=== PATIENT | female | born 1955 | race American Indian/Alaskan Native ===

== ENCOUNTER 2016-12-10 09:59 | Emergency (ER) | payer OTHER ==
[2016-12-10 10:10] VITALS: BP 155/86; PULSE 88; TEMP 97.6; BMI 34.3
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
[2016-12-10] MEDS ORDERED: ACETAMINOPHEN 325 MG TABLET (FP) PO ONE (10:34)
[2016-12-10] MEDS ORDERED: ACETAMINOPHEN 325 MG TABLET (FP) ONE (10:39)
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
== END 2016-12-10 12:55 | disposition home or self-care (01) ==
LOC: JER 09:59
DX: S59.811A Other specified injuries right forearm, initial encounter (principal); S09.8XXA Other specified injuries of head, initial encounter; V47.5XXA Car driver injured in collision with fixed or stationary object in traffic accident, initial encounter; Y92.414 Local residential or business street as the place of occurrence of the external cause; Y93.89 Activity, other specified; E78.5 Hyperlipidemia, unspecified; I25.10 Atherosclerotic heart disease of native coronary artery without angina pectoris; I10 Essential (primary) hypertension; Z95.5 Presence of coronary angioplasty implant and graft
CPT/HCPCS: 70450-TC; 72100-TC; 72125-TC; 73090-TC-RT; 73502-TC-LT; 99282-25

== ENCOUNTER 2018-03-31 23:57 | Inpatient (IN) | payer OTHER ==
--- NOTE | 2018-04-01 00:43 | PDOC ---
History of Present Illness - General Chief Complaint: Pain, Acute Stated Complaint: abd pain Time Seen by Provider: 04/01/18 00:39 History Source: Patient - History of Present Illness Initial Comments: 04/01/18 01:29 The patient is a 62 year old female with a PMH of CAD (s/p stent x2), HTN, HLD, Hypothyroidism who presents to our ED c/o acute onset of abdominal pain. Patient states the pain started shortly after her dinner at 8:30 p.m. last night. Pain is diffuse, sharp, "gassy" 10/10 with no radiation. Little relief w/OTC Mylanta. Small bowel movement s/p enema. Patient denies chest pain, shortness of breath, cough, sore throat, numbness/ tingling. NKDA Surgical: C/S, hysterectomy,primary jejunal anastomosis Social: denies toxic habits PMD: Dr. Beck As per EMR, patient evaluated in 2014 for abdominal pain at which time CT showed dilitation of jejunal loop, possibly 2/2 to adhesions, resolved with gastric decompression. Past History - Past Medical History Allergies/Adverse Reactions: Allergies Allergy/AdvReac Type Severity Reaction Status Date / Time No Known Allergies Allergy Verified 04/01/18 00:46 Home Medications: Ambulatory Orders Clopidogrel Bisulfate [Plavix -] 75 mg PO DAILY 08/03/15 Ranitidine HCl [Zantac] 150 mg PO BID 08/03/15 Ranolazine [Ranexa] 500 mg PO BID 08/03/15 Amlodipine Besylate [Norvasc -] 10 mg PO DAILY tablet 05/11/16 Aspirin [ASA -] 81 mg PO DAILY tab.chew 05/11/16 Atorvastatin Ca [Lipitor] 40 mg PO HS tablet 05/11/16 Ezetimibe [Zetia -] 10 mg PO DAILY tablet 05/11/16 Levothyroxine [Synthroid -] 50 mcg PO DAILY #0 05/11/16 Metoprolol Tartrate [Lopressor -] 25 mg PO BID tablet 05/11/16 Multivitamins [Multivit ([facility] Formul[facility])] 1 tab PO DAILY tab 05/11/16 Acetaminophen [Tylenol Extra Strength] 500 mg PO TID #9 tablet 12/10/16 Anemia: No Cardiac Disorders: Yes (CAD) GI Disorders: Yes (SMALL BOWEL OBSTRUCTION) HTN: Yes Hypercholesterolemia: Yes - Surgical History Abdominal Surgery: Yes (BOWEL RESECTION) Cardiac Surgery: Yes (CARDIAC stent placement September 2013) - Family Disease History Family Disease History: Heart Disease: Brother ( of massive [place] at 45 years old) - Immunization History Immunization Up to Date: Yes - Suicide/Smoking/Psychosocial Hx Smoking Status: No Smoking History: Never smoked Have you smoked in the past 12 months: No Number of Cigarettes Smoked Daily: 0 Hx Alcohol Use: No Drug/Substance Use Hx: No Substance Use Type: None Hx Substance Use Treatment: No Review of Systems - Review of Systems Constitutional: No: Chills, Fever HEENTM: No: Blurred Vision, Double Vision Respiratory: No: Cough, Shortness of Breath Cardiac (ROS): No: Chest Pain, Lightheadedness, Palpitations, Syncope ABD/GI: Yes: Constipated, Nausea, Abdominal cramping. No: Diarrhea, Vomiting *Physical Exam - Physical Exam General Appearance: Yes: Nourished, Obese HEENT: positive: Normal Voice, Hearing Grossly Normal Neck: positive: Trachea midline, Supple Respiratory/Chest: positive: Lungs Clear, Normal Breath Sounds. negative: Labored Respiration, Rapid RR Cardiovascular: positive: S1, S2. 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 H/o SBO. Tenderness w/o peritoneal signs in epigastric area. Frontal Dx: constipation, cholecystitis, SBO, early appy, mesenteric ischemia, gastritis, PUD, pancreatitis. Will obtain belly labs. IV hydration + Morphine. Reassess. 04/01/18 02:50 No leukocytosis CMP unremarkable Lipase normal 04/01/18 02:54 UA shows 1+ leukocyte esterase, 3 WBC, rare epithelial cells No previous Urine cultures in EMR 04/01/18 02:[address] 04/01/18 04:14 Repeat belly exam shows minimal TTP on stethescope test Small bowel dilitation, no SBO, no acute appy, normal GB, pancreas, spleen Lactic Acid pending 04/01/18 05:29 Lactic Acid normal Patient continues to c/o pain. Will give GI cocktail and admit for intractable pain. S/p greenish liquid emesis 04/01/18 05:41 Case d/w Dr. Wilkins, will admit for observation. Patient counseled on plan of care, amenable to admission. *DC/Admit/Observation/Transfer Diagnosis at time of Disposition: Abdominal pain - Discharge Dispostion Condition at time of disposition: Fair Decision to Admit order: Yes - Referrals Referrals: Sandy Beck MD [Primary Care Provider] - - Patient Instructions - Post Discharge Activity
[2018-04-01] MEDS ORDERED: SODIUM CHLORIDE 0.9% 500 ML INFUS.BAG IV ONE (01:19)
[2018-04-01] MEDS ORDERED: morphine CARPU-JECT 4 MG/1 ML DISP.SYRIN IVPUSH ONE (01:19)
[2018-04-01] MEDS ORDERED: morphine SULFATE 4 MG/ML VIAL ONE ×2 (02:15→06:47)
[2018-04-01 02:34] LABS: BASO % 0.7 % (0-2.0); EOS % 1.7 % (0-4.5); HEMOGLOBIN 15.3 GM/dL (10.7-15.3); LYMPH % 35.4 % (8-40); MCH 30.2 pg (25.7-33.7); MCHC 33.3 g/dl (32.0-36.0); MEAN CELL VOLUME 90.7 fl (80-96); MEAN PLT VOLUME 9.2 fl (7.5-11.1); NEUT % 56.2 % (42.8-82.8); PLATELET COUNT 161 K/MM3 (134-434); RBC 5.07 M/mm3 (3.60-5.2); RDW 13.4 % (11.6-15.6)
[2018-04-01 02:34] LABS: URINE APPEARANCE CLEAR; URINE BILIRUBIN NEGATIVE (<2.0 mg/dL); URINE COLOR YELLOW; URINE GLUCOSE (UA) NEGATIVE (NEGATIVE); URINE KETONE NEGATIVE (NEGATIVE); URINE LEUK ESTERASE 1+ (NEGATIVE); URINE NITRITE NEGATIVE (NEGATIVE); URINE PROTEIN NEGATIVE (NEGATIVE); URINE UROBILINOGEN NEGATIVE mg/dL (0.2-1.0)
[2018-04-01 02:42] LABS: EPI CELLS RARE /HPF (FEW); GRANULAR CASTS 3 /lpf; URINE HYALINE CAST 1 /lpf; URINE MUCUS FEW
--- NOTE | 2018-04-01 02:48 | PDOC ---
Attending Attestation - [facility] HPI: 04/01/18 02:50 The patient is a 62 year old female, with a significant past medical history of SBO, CAD (s/p stent x2), HTN, HLD, Hypothyroidism, who presents to the emergency department with, 5 hours of abdominal pain. Patient endorses that she has not been able to pass gas at this time with associated nausea. She tried mylanta and an enema, without relief, prompting her visit to the ER. She denies recent fevers, chills, headache or dizziness. She denies recent dysuria, frequency, urgency or hematuria. She denies recent chest pain or shortness of breath. Allergies: NKA Past surgical history:C/S, hysterectomy,primary jejunal anastomosis Social history: Nonsmoker. Denies EtOH use and recreational drug use. Primary Care Physician: Dr. Beck - Physicial Exam PE: 04/01/18 02:50 +GENERAL: Uncomfortably appearing. HEAD: Normal with no signs of trauma. +ABDOMEN: Diffuse upper quadrant tenderness. EXTREMITIES: Normal range of motion, no edema. No clubbing or cyanosis. No erythema, or tenderness. NEUROLOGICAL: Cranial nerves II through XII grossly intact. Normal speech. No focal neurological deficits. MUSCULOSKELETAL: Back non-tender to palpation, no CVA tenderness SKIN: Warm, Dry, normal turgor, no rashes or lesions noted. - Medical Decision Making 04/01/18 04:11 EXAM: CT abdomen and pelvis with IV contrast. Clinical indication: Epigastric pain. Comparison is made to the prior study dated 09/17/2014. Technique: Axial IV contrast-enhanced CT images of the abdomen and pelvis were obtained followed by coronal and sagittal reformats. Findings: The visualized portions of the lower thorax are within normal limits. There is no free intra-abdominal gas or fluid. The liver, gallbladder, adrenals, pancreas, and spleen are normal. There is no hydronephrosis or renal calculi bilaterally. The bilateral kidneys are normal. There are no enlarged abdominal or pelvic lymph nodes, by size criteria. However , there are a few prominent lymph nodes within the small bowel mesentery. There is been a prior hysterectomy. The urinary bladder is within normal limits. The appendix is normal. 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 However, there is no soft tissue mucosal thickening that is classically seen with small bowel lymphoma. There is some fecalized material within the small bowel. This can be seen on axial images 67 through 119. The remainder of the bowel is unremarkable. The visualized bony structures are unremarkable for the patient's age. Impression: 1. 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 Although small bowel lymphoma is the most common cause of aneurysmal dilatation of the small bowel there is no soft tissue mucosal thickening. Other etiology must also be considered in the differential including distal stricture, and other inflammatory conditions such as clothing sensitive enteropathy. 2. Few prominent small bowel mesenteric lymph nodes near the area of aneurysmal dilatation. 3. Otherwise, unremarkable CT of the abdomen and pelvis. One or more of the following dose reduction techniques were used: automated exposure control, adjustment of the mA and/or kV according to patient size, use of iterative reconstructive technique. Read by: Montana Wilson MD <Sj Cespedes - Last Filed: 04/01/18 05:37> - Resident Resident Name: Arlene Azul - ED Attending Attestation I have performed the following: I have examined & evaluated the patient, The case was reviewed & discussed with the resident, I agree w/resident's findings & plan, Exceptions are as noted - Medical Decision Making 04/01/18 05:59 Twelve-lead EKG was performed and reviewed by me. There is normal sinus rhythm with a normal rate of 76bpm. The axis is normal. The intervals are normal. There are no ST or T wave abnormalities. Impression: Normal twelve-lead EKG 62 yo F presenting to the ER with a complaint of abdominal pain H/o SBO Feels like her abdomen is distended, like she wants to pass gas but can not She tried doing an enema today with very little effect No fevers or chills On exam: Pt intermittently writhing in pain RRR CTA A&O x 3 upper abdominal tenderness to palpation, no guarding or rebound Labs wnl including lactate CT demonstrates no SBO, or intra abdominal infection Pt continues to complain of abd pain Was given morphine, Protonix Will place on observation <Adele Smith - Last Filed: 04/01/18 06:12> Attestations - Attestations 04/01/18 02:50 Documentation prepared by Sj Cespedes, acting as medical chief technician for Adele Smith MD. <Sj Cespedes - Last Filed: 04/01/18 05:37>
[2018-04-01 03:01] LABS: ALBUMIN 4.3 g/dl (3.4-5.0); ALK PHOS 138 U/L (45-117); ANION GAP 8 MMOL/L (8-16); BLOOD UREA NITROGEN 12 mg/dL (7-18); CALCIUM 9.1 mg/dL (8.5-10.1); CHLORIDE 103 mmol/L (98-107); CO2 27 mmol/L (21-32); CREATININE 0.9 mg/dL (0.55-1.3); GLUCOSE,RANDOM 136 mg/dL (74-106); LIPASE 167 U/L (73-393); POTASSIUM 3.9 mmol/L (3.5-5.1); SGOT/AST 56 U/L (15-37); SGPT/ALT 87 U/L (13-61); SODIUM 138 mmol/L (136-145); TOT PROT 8.6 g/dl (6.4-8.2)
[2018-04-01] MEDS ORDERED: PANTOPRAZOLE SODIUM 40 MG VIAL IVPUSH ONE (04:56)
[2018-04-01] MEDS ORDERED: PANTOPRAZOLE SODIUM 40 MG/100 ML BAG IVPB ONE (05:04)
[2018-04-01] MEDS ORDERED: LIDOCAINE VISCOUS 2% ORAL/TOP 20 ML UNIT-DOSE CUP MM ONE (05:21)
[2018-04-01] MEDS ORDERED: MAG HYDROX/AL HYDROX/SIMETH 30 ML UNIT-DOSE CUP PO ONE (05:21)
[2018-04-01] MEDS ORDERED: FAMOTIDINE 20 MG/50 ML IVPB 20 MG/50 ML MG IVPB ONE ×2 (05:21→06:48)
--- NOTE | 2018-04-01 06:19 | HP ---
CHIEF COMPLAINT: abdominal pain PCP: Dr. Beck HISTORY OF PRESENT ILLNESS: Patient is a 62 y/o female with a history of CAD x2, HTN, HLD, and hypothyroidism who presents for abdominal pain. Patient states the pain began yesterday. She notes the only abnormal thing she ate was a raw plaintain. She is occasionally constipated and thought the pain was from that so she gave herself an enema. She did have a small bowel movement but denies that the pain got better so she came to the hospital. She reports the pain is sharp, a 10/10, and is radiating to her back. She reports nothing makes it better. She felt nauseous but did not have her first episode of vomiting until one hour ago. She reports the pain is similar to when she had a SBO in 2013. She reports this SBO resolved on its own, did not need surgery, and she did not feel a need to follow up with GI. 40 years ago she had necrosis of her jujunum and had surgery. Patient reports she has never had a colonoscopy and has no family history of any colon diseases or colon cancer. Patient currently denies headache, chest pain, shortness of breath, or numbness or tingling. ER course was notable for: (1) NS (2) famotidine (3) morphine Recent Travel: denies PAST MEDICAL HISTORY:CAD x2 ( 2013), HTN, HLD, and hypothyroidism, TIA ( 2012) PAST SURGICAL HISTORY: Hysterectomy, C/S, primary jejunal anastamosis Social History: Smoking: denies Alcohol: denies Drugs: denies Family History: Father: HTN, parkinsons, Mother: stroke, DM, HTN Allergies No Known Allergies Allergy (Verified 04/01/18 00:46) HOME MEDICATIONS: Home Medications Medication Instructions Recorded Clopidogrel Bisulfate [Plavix -] 75 mg PO DAILY 08/03/15 Ranitidine HCl [Zantac] 150 mg PO BID 08/03/15 Ranolazine [Ranexa] 500 mg PO BID 08/03/15 Amlodipine Besylate [Norvasc -] 10 mg PO DAILY tablet 05/11/16 Aspirin [ASA -] 81 mg PO DAILY tab.chew 05/11/16 Atorvastatin Ca [Lipitor] 40 mg PO HS tablet 05/11/16 Ezetimibe [Zetia -] 10 mg PO DAILY tablet 12/24/16 Levothyroxine [Synthroid -] 50 mcg PO DAILY #0 05/11/16 Metoprolol Tartrate [Lopressor -] 25 mg PO BID tablet 05/11/16 Multivitamins [Multivit ([facility] 1 tab PO DAILY tab 05/11/16 Formulary)] Acetaminophen [Tylenol Extra 500 mg PO TID #9 tablet 12/10/16 Strength] REVIEW OF SYSTEMS CONSTITUTIONAL: Absent: fever, chills, diaphoresis, generalized weakness, malaise, loss of appetite, weight change HEENT: Absent: rhinorrhea, nasal congestion, throat pain, throat swelling, difficulty swallowing, mouth swelling, ear pain, eye pain, visual changes CARDIOVASCULAR: Absent: chest pain, syncope, palpitations, irregular heart rate, lightheadedness , peripheral edema RESPIRATORY: Absent: cough, shortness of breath, dyspnea with exertion, orthopnea, wheezing, stridor, hemoptysis GASTROINTESTINAL: abdominal pain, vomiting, Absent: abdominal distension, nausea, diarrhea, constipation, melena, hematochezia GENITOURINARY: Absent: dysuria, frequency, urgency, hesitancy, hematuria, flank pain, genital pain MUSCULOSKELETAL: Absent: myalgia, arthralgia, joint swelling, back pain, neck pain SKIN: Absent: rash, itching, pallor HEMATOLOGIC/IMMUNOLOGIC: Absent: easy bleeding, easy bruising, lymphadenopathy, frequent infections ENDOCRINE: Absent: unexplained weight gain, unexplained weight loss, heat intolerance, cold intolerance NEUROLOGIC: Absent: headache, focal weakness or paresthesias, dizziness, unsteady gait, seizure, mental status changes, bladder or bowel incontinence PSYCHIATRIC: Absent: anxiety, depression, suicidal or homicidal ideation, hallucinations. PHYSICAL EXAMINATION Vital Signs - 24 hr 04/01/18 00:00 Temperature 97.7 F Pulse Rate 94 H Respiratory 18 Rate Blood Pressure 152/70 O2 Sat by Pulse 99 Oximetry (%) GENERAL: Awake, alert, and fully oriented, in no distress HEAD: Normal with no signs of trauma. EYES: Pupils equal, round and reactive to light, extraocular movements intact EARS, NOSE, THROAT: Moist mucous membranes. LUNGS: Breath sounds equal, clear to auscultation bilaterally. No wheezes, and no crackles. No accessory muscle use. HEART: Regular rate and rhythm, normal S1 and S2 without murmur, rub or gallop. ABDOMEN: Soft, nontender, not distended, mildly tympanic, bowel sounds heard MUSCULOSKELETAL: Normal range of motion at all joints. LOWER EXTREMITIES: 2+ pulses, warm, well-perfused. No calf tenderness. No peripheral edema. NEUROLOGICAL: Normal speech. PSYCHIATRIC: Cooperative. Good eye contact. Appropriate mood and affect. SKIN: Warm, dry, normal turgor, no rashes or lesions noted, normal capillary refill. Laboratory Results - last 24 hr CBC, BMP 04/01/18 02:25 04/01/18 02:25 Urine Test Results Urine Color Yellow 04/01/18 01:51 Urine Appearance Clear 04/01/18 01:51 Urine pH 6.0 (5.0-8.0) 04/01/18 01:51 Ur Specific [place] 1.016 (1.010-1.035) 04/01/18 01:51 Urine Protein Negative (NEGATIVE) 04/01/18 01:51 Urine Glucose (UA) Negative (NEGATIVE) 04/01/18 01:51 Urine Ketones Negative (NEGATIVE) 04/01/18 01:51 Urine Blood Negative (NEGATIVE) 04/01/18 01:51 Urine Nitrite Negative (NEGATIVE) 04/01/18 01:51 Urine Bilirubin Negative (<2.0 mg/dL) 04/01/18 01:51 Ur Leukocyte Esterase 1+ (NEGATIVE) H 04/01/18 01:51 Ur Epithelial Cells Rare /HPF (FEW) 04/01/18 01:51 Urine Mucus Few 04/01/18 01:51 ASSESSMENT/PLAN: Patient is a 62 y/o female with a history of CAD x2, HTN, HLD, and hypothyroidism who presents for abdominal pain. #abdominal 2/2 to likely ileus - CT abd: segment of aneurysmal dilitation, must consider small bowel lymphoma - f/u Dr. Molina for surgery recommendations - f/u Dr. Jonas for GI f/u - monitor examination for obstruction and flatus - NPO - LR @ 110 - f/u lactic acid, CK, MG, Phosp - hold patients home meds: plavix ect. - morphine 4mg q6h #Elevated transaminitis - 2/2 to unknown cause, r/o liver dz - AST: 56, ALT: 87 #CAD s/p x2 stents - no hx of UT, per pt: hx of clot - HOLD plavix for possible surgery; per surgeon unlikely at this time #HTN - if tachy can give metoprolol 10 mg prn #Hypothyroidism - hold po meds #HLD - hold po meds Visit type - Emergency Visit Emergency Visit: Yes ED Registration Date: 04/01/18 Care time: The patient presented to the Emergency Department on the above date and was hospitalized for further evaluation of their emergent condition. - New Patient This patient is new to me today: Yes Date on this admission: 04/01/18 - Critical Care Critical Care patient: No
[2018-04-01] MEDS ORDERED: morphine CARPU-JECT 2 MG/1 ML DISP.SYRIN IVPUSH PRN (06:31)
--- NOTE | 2018-04-01 06:44 | PN ---
Teaching Attending Note Name of Resident: Melanie Plata ATTENDING PHYSICIAN STATEMENT I saw and evaluated the patient. I reviewed the resident's note and discussed the case with the resident. I agree with the resident's findings and plan as documented. SUBJECTIVE: Patient seen and examined at bedside; please see resident note for further details. She is hemodynamically stable and afebrile. She presents for intractable abdominal pain and was found to have an ileus on CT; she had a prior SBO several years ago that was managed conservatively; 30+ years ago she was found to have a necrotic bowel and did have a resection. Never had a colonoscopy. She has no other complaints today. Pain is cyclical. She is chronically constipated and occasionally gives herself enemas; small BM after giving herself one last night. Last time she passed gas was when she got to the ER. Will admit to medicine with sgy and GI consultation. Denies CP, SOB, etc PMH significant for CAD (s/p PCIx2 2013), TIA, HTN, HLD, Obesity, Chronic constipation, prior SBO, psoriasis PSH significant for remote bowel resection with primary jejunal anastamosis FH asked and noncontributory Social history denies alcohol, tobacco, and drug abuse. OBJECTIVE: VS reviewed; labs and imaging reviewed NAD, AAO, resting in bed, intermittently uncomfortable RRR s1/2 no mgr Slightly distended with little to no tympany; tender to palpation on R>L sides. No organomegaly felt but limited exam due to discomfort. CN2-12 grossly intact; no FNDs Normal behavior, appropriate mood CT reveals an ileus; some concentric LN; final report pending. Some aneurysmal dilation involving the mid small bowel. Labs reviewed;AST/ALT/ALP 56/87/138; no white count ASSESSMENT AND PLAN: Mrs. Marte is a 62 y/o female presenting with abdominal pain found to have an ileus; given her h/o SBO and risks sgy will be consulted and we will await their input on management of the ileus and monitor for obstruction. As her stents are old she doesn't need DAPT when she is NPO and can resume later. 1) Ileus with small bowel dilation -Cause unclear; may be 2/2 adhesions from prior procedures but also, as stated by radiology, have to consider small bowel lymphoma. No documentation of seeing Gi in the pst. Does also have a history of chronic constipation for which she intermittently uses enemas. -Monitor for progression to obstruction with serial abd exams; monitor for flatus/bm -Pain control/nausea control (Morphine, Zofran) -Consulting surgery; defer management to them (NGT vs. enema/stool softener/ laxative). Given possibility of small bowel lymphoma with transaminitis, etc. will consult GI. -NPO; can hold PO meds and resume when clear to take PO. IVF with LR@110 2) Transaminitis -Unclear cause; trend and monitor. No need for urgent MRCP but can consider based on GI input. LFTs wnl on the last admit 3) CAD s/p x2 PCI 2013 -No active chest pain; OK to hold DAPT until cleared to take PO as >1yr since stenting. -Resume home meds prior to DC; call pharmacy and ensure list up to date. -If tachy 2/2 BB WD can give IV metoprolol in interem 4) HTN -Nonacute; hold PO meds 5) HLD -Nonacute; hold PO meds 6) Hypothyroidism -Resume home meds when taking PO check TSH as OP 7) Obesity -[place] when clinically appropriate Full Code
[2018-04-01] MEDS ORDERED: LIDOCAINE VISCOUS 2% ORAL/TOP 20 ML UNIT-DOSE CUP ONE (06:47)
[2018-04-01] MEDS ORDERED: MAG HYDROX/AL HYDROX/SIMETH 30 ML UNIT-DOSE CUP ONE (06:48)
[2018-04-01] MEDS: LACTATED RINGERS SOLUTION 1,000 ML IV SCH (06:51)
[2018-04-01] MEDS ORDERED: METOPROLOL TARTRATE 5 MG/5 ML VIAL IVPUSH PRN (07:04)
[2018-04-01 08:15] LABS: BASO % 0.4 % (0-2.0); EOS % 0.5 % (0-4.5); HEMATOCRIT 43.9 % (32.4-45.2); HEMOGLOBIN 14.8 GM/dL (10.7-15.3); LYMPH % 10.7 % (8-40); MCH 30.5 pg (25.7-33.7); MCHC 33.6 g/dl (32.0-36.0); MEAN CELL VOLUME 90.6 fl (80-96); MONO % 5.9 % (3.8-10.2); NEUT % 82.5 % (42.8-82.8); PLATELET COUNT 143 K/MM3 (134-434); RBC 4.84 M/mm3 (3.60-5.2); RDW 13.4 % (11.6-15.6); WHITE BLOOD COUNT 8.5 K/mm3 (4.0-10.0)
[2018-04-01 08:47] LABS: ALBUMIN 3.8 g/dl (3.4-5.0); ALK PHOS 118 U/L (45-117); ANION GAP 9 MMOL/L (8-16); BILIRUBIN,TOTAL 1.3 mg/dL (0.2-1); BLOOD UREA NITROGEN 10 mg/dL (7-18); CALCIUM 8.4 mg/dL (8.5-10.1); CHLORIDE 104 mmol/L (98-107); CO2 26 mmol/L (21-32); CREATININE 0.7 mg/dL (0.55-1.3); GLUCOSE,RANDOM 188 mg/dL (74-106); PHOSPHOROUS 3.3 mg/dL (2.5-4.9); POTASSIUM 3.5 mmol/L (3.5-5.1); SGOT/AST 48 U/L (15-37); SGPT/ALT 74 U/L (13-61); SODIUM 139 mmol/L (136-145); TOT PROT 7.4 g/dl (6.4-8.2)
[2018-04-01 09:03] LABS: INR 1.15 (0.83-1.09); PROTHROMBIN TIME (PATIENT) 13.6 SEC (9.7-13.0)
[2018-04-01] MEDS ORDERED: NITROGLYCERIN SUBLINGUAL 1/150 0.4 MG TAB SL PRN (10:28)
--- NOTE | 2018-04-01 11:02 | PN ---
Physical Exam: SUBJECTIVE: Patient seen and examined. Pt. complains of bouts of retching. Pt. states abdominal pain began at 8pm last night most intense in epigastrium. Pt. throwing up bilious vomit. Pt. endorses having 2 very small BMs the second after a self administered enema. On chart review Pt.'s site of periumbilical psoriasis is david of old MRSA+ abcess in 2016. OBJECTIVE: Vital Signs Period Temp Pulse Resp BP Sys/Pricne Pulse Ox Last 24 Hr 97.7 F-97.8 F 82-94 18-24 108-152/66-70 93-99 GENERAL: The patient is awake, alert, and fully oriented, in acute distress from abdominal pain. HEAD: Normal with no signs of trauma. EYES: sclera anicteric, conjunctiva clear. No ptosis. ENT: Ears normal, nares patent, oropharynx clear without exudates, dry mucous membranes. LUNGS: Breath sounds equal, clear to auscultation bilaterally, no wheezes, no crackles, no accessory muscle use. HEART: Regular rate and rhythm, S1, S2 without murmur ABDOMEN: Soft, obese, surgical scars, diffuse tenderness to palpation most intense in epigastrium, nondistended, normoactive bowel sounds, no guarding, no rebound EXTREMITIES: 2+ dorsal pedal pulses, warm, well-perfused, no calf tenderness, no edema. NEUROLOGICAL: Normal speech, gait not observed. PSYCH: Normal mood, normal affect. SKIN: Warm, dry, normal turgor, psoriatic rash around umbilicus, ~2cm nodule left abdomen Laboratory Results - last 24 hr 04/01/18 04/01/18 04/01/18 01:51 02:25 02:25 WBC 6.0 RBC 5.07 Hgb 15.3 Hct 46.0 H MCV 90.7 MCH 30.2 MCHC 33.3 RDW 13.4 Plt Count 161 MPV 9.2 D Absolute Neuts (auto) 3.4 Neutrophils % 56.2 Lymphocytes % 35.4 Monocytes % 6.0 Eosinophils % 1.7 Basophils % 0.7 Nucleated RBC % 0 PT with INR INR Sodium 138 Potassium 3.9 Chloride 103 Carbon Dioxide 27 Anion Gap 8 BUN 12 Creatinine 0.9 Creat Clearance w eGFR > 60 Random Glucose 136 H Lactic Acid Calcium 9.1 Phosphorus Magnesium Total Bilirubin 1.0 AST 56 H ALT 87 H Alkaline Phosphatase 138 H Creatine Kinase 173 Creatine Kinase Index 1.0 CK-MB (CK-2) 1.9 Troponin I < 0.02 Total Protein 8.6 H Albumin 4.3 Lipase 167 Urine Color Yellow Urine Appearance Clear Urine pH 6.0 Ur Specific [place] 1.016 Urine Protein Negative Urine Glucose (UA) Negative Urine Ketones Negative Urine Blood Negative Urine Nitrite Negative Urine Bilirubin Negative Urine Urobilinogen Negative Ur Leukocyte Esterase 1+ H Urine WBC (Auto) 3 Urine RBC (Auto) 1 Ur Epithelial Cells Rare Hyaline Casts 1 Granular Casts 3 Urine Mucus Few Blood Type Antibody Screen 04/01/18 04/01/18 04/01/18 04:00 07:48 07:48 WBC 8.5 RBC 4.84 Hgb 14.8 Hct 43.9 MCV 90.6 MCH 30.5 MCHC 33.6 RDW 13.4 Plt Count 143 MPV 9.0 Absolute Neuts (auto) 7.0 Neutrophils % 82.5 D Lymphocytes % 10.7 D Monocytes % 5.9 Eosinophils % 0.5 Basophils % 0.4 Nucleated RBC % 0 PT with INR 13.60 H INR 1.15 H Sodium Potassium Chloride Carbon Dioxide Anion Gap BUN Creatinine Creat Clearance w eGFR Random Glucose Lactic Acid 1.5 Calcium Phosphorus Magnesium Total Bilirubin AST ALT Alkaline Phosphatase Creatine Kinase Creatine Kinase Index CK-MB (CK-2) Troponin I Total Protein Albumin Lipase Urine Color Urine Appearance Urine pH Ur Specific [place] Urine Protein Urine Glucose (UA) Urine Ketones Urine Blood Urine Nitrite Urine Bilirubin Urine Urobilinogen Ur Leukocyte Esterase Urine WBC (Auto) Urine RBC (Auto) Ur Epithelial Cells Hyaline Casts Granular Casts Urine Mucus Blood Type Antibody Screen 04/01/18 04/01/18 04/01/18 07:48 07:48 07:48 WBC RBC Hgb Hct MCV MCH MCHC RDW Plt Count MPV Absolute Neuts (auto) Neutrophils % Lymphocytes % Monocytes % Eosinophils % Basophils % Nucleated RBC % PT with INR INR Sodium 139 Potassium 3.5 Chloride 104 Carbon Dioxide 26 Anion Gap 9 BUN 10 Creatinine 0.7 Creat Clearance w eGFR > 60 Random Glucose 188 H Lactic Acid Calcium 8.4 L Phosphorus 3.3 Magnesium 2.0 Total Bilirubin 1.3 H AST 48 H ALT 74 H Alkaline Phosphatase 118 H Creatine Kinase 148 Creatine Kinase Index CK-MB (CK-2) Troponin I Total Protein 7.4 Albumin 3.8 Lipase Urine Color Urine Appearance Urine pH Ur Specific [place] Urine Protein Urine Glucose (UA) Urine Ketones Urine Blood Urine Nitrite Urine Bilirubin Urine Urobilinogen Ur Leukocyte Esterase Urine WBC (Auto) Urine RBC (Auto) Ur Epithelial Cells Hyaline Casts Granular Casts Urine Mucus Blood Type O POSITIVE Antibody Screen Negative 04/01/18 07:48 WBC RBC Hgb Hct MCV MCH MCHC RDW Plt Count MPV Absolute Neuts (auto) Neutrophils % Lymphocytes % Monocytes % Eosinophils % Basophils % Nucleated RBC % PT with INR INR Sodium Potassium Chloride Carbon Dioxide Anion Gap BUN Creatinine Creat Clearance w eGFR Random Glucose Lactic Acid 1.4 Calcium Phosphorus Magnesium Total Bilirubin AST ALT Alkaline Phosphatase Creatine Kinase Creatine Kinase Index CK-MB (CK-2) Troponin I Total Protein Albumin Lipase Urine Color Urine Appearance Urine pH Ur Specific [place] Urine Protein Urine Glucose (UA) Urine Ketones Urine Blood Urine Nitrite Urine Bilirubin Urine Urobilinogen Ur Leukocyte Esterase Urine WBC (Auto) Urine RBC (Auto) Ur Epithelial Cells Hyaline Casts Granular Casts Urine Mucus Blood Type Antibody Screen Active Medications Current Medications Lactated Ringer's (Lactated Ringers Solution) 1,000 mls @ 110 mls/hr IV ASDIR [facility] Last Admin: 04/01/18 06:51 Dose: 110 mls/hr Metoprolol Tartrate (Lopressor Injection -) 10 mg IVPUSH Q6H PRN PRN Reason: HYPERTENSION Morphine Sulfate (Morphine Sulfate) 4 mg IVPUSH Q6H PRN PRN Reason: PAIN LEVEL 7 - 10 Nitroglycerin (Nitrostat -) 0.4 mg SL PRN PRN PRN Reason: FOR CHEST PAIN Home Medications Medication Instructions Recorded Clopidogrel Bisulfate [Plavix -] 75 mg PO DAILY 08/03/15 Ranolazine [Ranexa] 1,000 mg PO BID 08/03/15 Amlodipine Besylate [Norvasc -] 10 mg PO DAILY tablet 05/11/16 Atorvastatin Ca [Lipitor] 40 mg PO HS tablet 05/11/16 Ezetimibe [Zetia -] 10 mg PO DAILY tablet 05/11/16 Multivitamins [Multivit ([facility] 1 tab PO DAILY tab 05/11/16 Formulary)] Clopidogrel Bisulfate [Plavix] 75 mg PO DAILY 04/01/18 Levothyroxine [Synthroid -] 75 mcg PO DAILY 04/01/18 Losartan Potassium 25 mg PO DAILY 04/01/18 Nitroglycerin 0.4 mg SL PRN PRN 04/01/18 ASSESSMENT/PLAN: Pt. is a 62 y.o. F w/ PMHx. of SBO, CAD x2 stents (2013), TIA, HTN, HLD, and hypothyroidism who presents for abdominal pain. #Gastroenterology -Abdominal Pain 2/2 suspected Ileus 2/[address] abd: segment of aneurysmal dilitation, must consider small bowel lymphoma Dr. Holder for surgery recommends: NGT for decompression, Rpt. CT w/ contrast, hold Plavix, cardiology consult for surgery clearance and notes that we should hold plavix 3 days boefore emergent surgery and 8 days before elective surgery. UptoDate recommendations are consistent with this plan, but would ideally perform surgery at facility with 24hr interventional cardiology coverage NG Tube placement f/u Dr. Jonas for GI recommendations monitor examination for obstruction and flatus LA: 1.5-->1.4 Holding home meds: plavix ect. Morphine 4mg Q6H PRN f/u FOBT -Elevated transaminitis R/o Liver disease likely 2/2 to dehydration in setting of bilious vomiting LFTs trending down, will continue to monitor -HLD Hold Lipitor 40mg as Pt. is NPO #Cardiology -CAD EKG: NSR, no ST or T-wave abnormalities s/p x 2 stents (2013) No known Hx. of SD Per Pt. has had Hx. of TIA HOLD plavix for possible surgery; per surgeon unlikely at this time -HTN Hold Norvasc and Losartan as BP has been low-normal #Endocrine -Hypothyroidism Hold Levothyroxine 75 mcg #F/E/N -LR @ 110ml/hr -monitor electrolytes and replete as needed -NPO #DVT. Ppx. -SCDs Visit type - Emergency Visit Emergency Visit: Yes ED Registration Date: 04/01/18 Care time: The patient presented to the Emergency Department on the above date and was hospitalized for further evaluation of their emergent condition. - New Patient This patient is new to me today: Yes Date on this admission: 04/01/18 - Critical Care Critical Care patient: No - Discharge Referral Referred to [facility] Med P.C.: No
--- NOTE | 2018-04-01 11:10 | PN ---
Progress Note (short form) - Note Progress Note: surgery pt seen and examined. full consult dictated. 62f, obese, on plavix, cad, previous sbo, previous sbr in [place] for necrotizing enteritis, presents with colicky abd pain since last night, n/v, after eating raw plantains. Ct shows dilated loop of jejunum with fecalization and small lymph nodes similar to past ct when admitted for psbo. on exam abd is soft with minimal left sided tenderness. labs normal Plan- likely psbo from fiber load in old anastamosis. suggest ngt decompression. would repeat ct with oral contrast since that is standard of care for sbo. Pt is non toxic without evidence of bowel compromise. would hold plavix in case medical management fails. Needs cardiology eval to see if candidate for surgery at a [facility] if it becomes necessary. Plavix ideally shoud be held 8 days before any elective surgery and 3 days before emergent surgery.
--- NOTE | 2018-04-01 11:33 | EKG ---
Test Reason : Blood Pressure : / mmHG Vent. Rate : 076 BPM Atrial Rate : 076 BPM P-R Int : 170 ms QRS Dur : 098 ms QT Int : 412 ms P-R-T Axes : 047 043 017 degrees QTc Int : 463 ms NORMAL SINUS RHYTHM NORMAL ECG WHEN COMPARED WITH ECG OF 10-MAY-2016 16:28, MINIMAL CRITERIA FOR ANTERIOR INFARCT ARE NO LONGER PRESENT NONSPECIFIC T WAVE ABNORMALITY NO LONGER EVIDENT IN ANTEROLATERAL LEADS Confirmed by KATHY WESLEY MD ([id number]) on 04/01/2018 11:32:40 AM Referred By: Confirmed By:KATHY WESLEY MD
--- NOTE | 2018-04-01 12:47 | CONS ---
DATE OF CONSULTATION: 04/01/2018 REASON FOR CONSULTATION: Abdominal pain. BRIEF HISTORY: This is a 62-year-old female with multiple medical problems including heart disease on Plavix. She, as a 22-year-old in [facility], had a small bowel resection for necrotizing enterocolitis. She presumably had a hand-sewn anastomosis. Twice in the past, she has been admitted for bowel obstruction, both treated conservatively, and she has also had a hysterectomy. She presents with colicky abdominal pain since last night with nausea and vomiting after eating raw plantain. She had a CT scan of the abdomen and pelvis in the emergency room without oral contrast which showed a dilated loop of jejunum with fecalization. There was also noted to be some small lymph nodes at that segment. The patient was admitted for abdominal pain. Request today for surgical evaluation. No nasogastric tube was placed, and the patient has been kept n.p.o. LABORATORY DATA: Her labs were noted to be unremarkable with a normal white blood cell count. However, there is a shift. PAST MEDICAL HISTORY: As in the [facility]. In addition, she has hypertension, hyperlipidemia, and hypothyroid disease. PAST SURGICAL HISTORY: As in the [facility]. In addition, she has coronary stents. HOME MEDICATIONS: Include Plavix, Synthroid, Ranexa, Norvasc, Lipitor, nitroglycerin, Zetia, and multivitamin. FAMILY HISTORY: Noncontributory. ALLERGIES: She has no known drug allergies. REVIEW OF SYSTEMS: General: Admits to fatigue. Cardiac: Denies chest pain. Respiratory: Denies shortness of breath. Gastrointestinal: Currently, admits to intermittent cramping pain without diarrhea, without blood in her stool, without recent weight loss. Genitourinary: Denies dysuria. Musculoskeletal: Admits to arthritic pain. Psychiatric: Denies anxiety, depression, or hearing voices. PHYSICAL EXAMINATION: General: This is an obese 62-year-old female in no distress. Vital signs: She is afebrile, has been since admission. HEENT: Her head is normocephalic. Her sclerae anicteric. Neck: Supple. Chest: Clear. Abdomen: Soft. It is obese. She has a transverse incision going approximately 3 inches below her umbilicus across her abdominal cavity. There is no obvious hernia. She has slight tenderness in the left mid abdomen without rebound or guarding. She is mildly distended, but her exam is limited by obesity. Extremities: Have edema. REVIEW OF HER LABORATORY: White blood cell count is 8.5 with an 82% shift. Her coagulation profile is unremarkable. Her chemistries are also unremarkable with the exception of slightly elevated liver function test. IMAGING: As in HPI. ASSESSMENT: This 62-year-old female presents with colicky abdominal pain, nausea, and vomiting after eating a raw plantain. She has a history of a small bowel resection and previous admissions for bowel obstruction. Clinically, I suspect this is a partial bowel obstruction likely secondary to a fiber bolus impacting the anastomosis site. I suspect that with conservative management, it will soften and pass through. At this point, I recommend nasogastric tube decompression. This will alleviate her nausea as well as decrease the diameter of the proximal small bowel and help wth conservative management. Also, once this is done, I would recommend repeat the CT scan this time with oral contrast which should be placed through the nasogastric tube. This would help better evaluate if this is a partial obstruction, complete obstruction, or no obstruction at all. Oral contrast is standard care in evaluating a small bowel obstruction. Patient currently has no evidence of bowel compromise and is safe to continue conservative management. I would recommend holding Plavix as if she does require surgery, then, that would be a problem. Plavix normally should be held 8 days for any elective procedure and at least 3 days before an emergent procedure. Patient also should be evaluated by the Cardiology service since she does have significant coronary artery disease and is on Ranexa as well as nitroglycerin and Plavix. The Cardiology Department determine if patient is safe to have surgery at [facility] which is a [facility] hospital without 24-hour physician intensive care unit care and without a cardiac labor economist. I just felt that she would have a potentially better outcome with surgery at a tertiary care center, and then, arrangements for transfer should be made. At this point, will follow CT scan, NG tube output, and GI evaluation. There was also mention of small lymph nodes. Likely these are just reactive. However, further workup including small bowel series as an outpatient and possibly PET scan could be indicated if GI feels necessary. DO JANAK TAPIA/[id number]
[2018-04-01] MEDS: morphine SULFATE 4 MG/ML VIAL IVPUSH PRN (16:07)
[2018-04-01] MEDS ORDERED: MORPHINE SULFATE 2 MG/ML VIAL ONE (16:09)
--- NOTE | 2018-04-01 18:12 | PN ---
Teaching Attending Note Name of Resident: Debby Hughes ATTENDING PHYSICIAN STATEMENT I saw and evaluated the patient. I reviewed the resident's note and discussed the case with the resident. I agree with the resident's findings and plan as documented. SUBJECTIVE:seen at 9 : 30 am No fever or chills . has abd pain . vomited over night denies SOB OBJECTIVE: NAD , dry MM Cv: RRR. Lungs: CTAB ext : no edema Abd: soft, hyperactive BS. high pitched ASSESSMENT AND PLAN: 62 y/o lady with h/o CAD (s/p PCIx2 2013), TIA, HTN, HLD, Obesity, Chronic constipation, psoriasis, SBO, partial bowel resection due to ischemia , who presented with abd pain, and N/V and was found to have SBO 1- SBO: likely due to adhesions - refused NG tube - cont IVF - Morphine - appreciate Sx input - Hold antiplatelet 2- HTN: if BP is elevated , will introduce her meds 3- Transaminitis : likely due to the abdominal process. trend HLOC
--- NOTE | 2018-04-01 18:42 | CON.GI ---
Consult - History of Present Illness History of Present Illness: 62 y/o Female was doing well until 5 hours [employer] when she developed diffuse abdominal pain associated with nausea and vomiting. She had a similar episode 2013 for which she was diagnosed to have SBO. NGT was inserted which provided complete relief of her symptoms. The patient continued to have severe abdominal pain. I readjusted the NGT and noted to be in place. - Past Medical History Cardio/Vascular: Yes: CAD, HTN, Hyperlipdemia Gastrointestinal: Yes: Other (adhesions, bowel resection) - Past Surgical History Past Surgical History: Yes: Hysterectomy (ex lap for necritizing enterocolitis during nursing school in [facility]) - Alcohol/Substance Use Hx Alcohol Use: No - Smoking History Smoking history: Never smoked Have you smoked in the past 12 months: No Aproximately how many cigarettes per day: 0 Home Medications - Allergies Allergies/Adverse Reactions: Allergies Allergy/AdvReac Type Severity Reaction Status Date / Time No Known Allergies Allergy Verified 04/01/18 00:46 - Home Medications Home Medications: Ambulatory Orders Clopidogrel Bisulfate [Plavix -] 75 mg PO DAILY 08/03/15 Ranolazine [Ranexa] 1,000 mg PO BID 08/03/15 Amlodipine Besylate [Norvasc -] 10 mg PO DAILY tablet 05/11/16 Atorvastatin Ca [Lipitor] 40 mg PO HS tablet 05/11/16 Ezetimibe [Zetia -] 10 mg PO DAILY tablet 05/11/16 Clopidogrel Bisulfate [Plavix] 75 mg PO DAILY 04/01/18 Levothyroxine [Synthroid -] 75 mcg PO DAILY 04/01/18 Losartan Potassium 25 mg PO DAILY 04/01/18 Nitroglycerin 0.4 mg SL PRN PRN 04/01/18 Review of Systems - Review of Systems Gastrointestinal: reports: Abdominal Pain, Bloating, Constipation. denies: Diarrhea, Dysphagia, Rectal Bleeding, Vomiting Physical Exam-GI Vital Signs: Vital Signs Temperature 97.4 F L 04/01/18 16:17 Pulse Rate 81 04/01/18 16:17 Respiratory Rate 17 04/01/18 16:17 Blood Pressure 150/73 04/01/18 16:17 O2 Sat by Pulse Oximetry (%) 97 04/01/18 11:30 Constitutional: Yes: Obese Eyes: Yes: Conjunctiva Clear HENT: Yes: Atraumatic Neck: Yes: Supple Cardiovascular: Yes: Regular Rate and Rhythm Respiratory: Yes: CTA Bilaterally ...Palpate: Yes: Soft. No: Firm/Rigid, Guarding, Hepatomegaly, Mass, Pulsatile Mass, Splenomegaly, Tenderness Labs: CBC, BMP 04/01/18 07:48 04/01/18 07:48 INR, PTT INR 1.15 (0.83-1.09) H 04/01/18 07:48 Hepatic Panel Total Bilirubin 1.3 mg/dL (0.2-1) H 04/01/18 07:48 AST 48 U/L (15-37) H 04/01/18 07:48 ALT 74 U/L (13-61) H 04/01/18 07:48 Alkaline Phosphatase 118 U/L (45-117) H 04/01/18 07:48 Albumin 3.8 g/dl (3.4-5.0) 04/01/18 07:48 Ambulatory Orders Clopidogrel Bisulfate [Plavix -] 75 mg PO DAILY 08/03/15 Ranolazine [Ranexa] 1,000 mg PO BID 08/03/15 Amlodipine Besylate [Norvasc -] 10 mg PO DAILY tablet 05/11/16 Atorvastatin Ca [Lipitor] 40 mg PO HS tablet 05/11/16 Ezetimibe [Zetia -] 10 mg PO DAILY tablet 05/11/16 Clopidogrel Bisulfate [Plavix] 75 mg PO DAILY 04/01/18 Levothyroxine [Synthroid -] 75 mcg PO DAILY 04/01/18 Losartan Potassium 25 mg PO DAILY 04/01/18 Nitroglycerin 0.4 mg SL PRN PRN 04/01/18 Imaging - Results Cat Scan: Report Reviewed Problem List - Problems (1) Small bowel obstruction Assessment/Plan: r> CONTINUE ngt SERIAL ABDOMINAL EXXAMINATION Code(s): K56.69 - OTHER INTESTINAL OBSTRUCTION * DO NOT USE *
[2018-04-01 18:57] VITALS: BMI 33.7
[2018-04-01] MEDS ORDERED: PROCHLORPERAZINE INJECTION 10 MG/2 ML VIAL IVPB ONE (19:15)
[2018-04-01] MEDS ORDERED: KETOROLAC TROMETHAMINE 15 MG/ML VIAL IM ONE (19:30)
[2018-04-01] MEDS ORDERED: morphine SULFATE 4 MG/ML VIAL IVPUSH ONE (19:30)
[2018-04-02] MEDS: LACTATED RINGERS SOLUTION 1,000 ML IV SCH ×2 (01:10→18:03)
[2018-04-02] MEDS: morphine SULFATE 4 MG/ML VIAL IVPUSH PRN (07:30)
[2018-04-02 08:03] LABS: HEMATOCRIT 42.1 % (32.4-45.2); HEMOGLOBIN 14.1 GM/dL (10.7-15.3); MCH 30.4 pg (25.7-33.7); MCHC 33.4 g/dl (32.0-36.0); MEAN CELL VOLUME 90.9 fl (80-96); MEAN PLT VOLUME 9.5 fl (7.5-11.1); PLATELET COUNT 140 K/MM3 (134-434); RBC 4.63 M/mm3 (3.60-5.2); RDW 13.1 % (11.6-15.6)
[2018-04-02 08:05] LABS: ANION GAP 9 MMOL/L (8-16); BLOOD UREA NITROGEN 10 mg/dL (7-18); CALCIUM 8.1 mg/dL (8.5-10.1); CHLORIDE 104 mmol/L (98-107); CO2 26 mmol/L (21-32); CREATININE 0.7 mg/dL (0.55-1.3); GLUCOSE,RANDOM 102 mg/dL (74-106); MAGNESIUM 2.1 mg/dL (1.8-2.4); PHOSPHOROUS 3.6 mg/dL (2.5-4.9); POTASSIUM 3.9 mmol/L (3.5-5.1); SODIUM 140 mmol/L (136-145)
--- NOTE | 2018-04-02 08:53 | PN ---
GI Progress Note Subjective: abdominal pain subsided, patient had several episodes of vomiting despite NGT. The NGT was again readjusted, GOMCO suction was requested. - Objective Vital Signs: Vital Signs Temperature 98.5 F 04/02/18 05:32 Pulse Rate 69 04/02/18 05:32 Respiratory Rate 19 04/02/18 05:32 Blood Pressure 133/60 04/02/18 05:32 O2 Sat by Pulse Oximetry (%) 99 04/01/18 21:00 Constitutional: Well Nourished Eyes: Yes: Conjunctiva Clear HENT: Yes: Atraumatic Neck: Yes: Trachea Midline Cardiovascular: Yes: Regular Rate and Rhythm Respiratory: Yes: CTA Bilaterally ...Palpate: Yes: Soft, Tenderness (--mild diffuse). No: Firm/Rigid, Guarding, Hepatomegaly, Mass, Splenomegaly Labs: CBC, BMP 04/02/18 06:30 04/02/18 06:30 INR, PTT INR 1.15 (0.83-1.09) H 04/01/18 07:48 Problem List - Problems (1) Small bowel obstruction Assessment/Plan: R>GOMCO suction FUA today surgery follow up Code(s): K56.69 - OTHER INTESTINAL OBSTRUCTION * DO NOT USE *
--- NOTE | 2018-04-02 10:49 | PN ---
Progress Note (short form) - Note Progress Note: surgery Ct from yesterday still not read. appears to have no obstruction with contrast passing into the right colon. There appears to be an abnormal loop of thickened jejunum with contrast passing through. kub today also not read but shows contrast throughout colon afebrile abd- soft, nt, nd Plan- suspect resolving psbo from fiber bolus. will remove ngt. consider low fiber liquids tomorrow and d/c home Friday if tolerates on liquids for 1 week then low fiber diet for 1 month. Will need repeat ct in 1 month to re-eval abnormal of segment of small bowel and GI w/u if still abnormal. I will defer to Dr. Jonas.
--- NOTE | 2018-04-02 11:11 | CON.CARD ---
Consult Consult Specialty:: Cardiology Referred by:: Hospitalist Reason for Consultation:: Cardiac evaluation - History of Present Illness Chief Complaint: Abdominal discomfort History of Present Illness: Patient is a 62 year old female of [place] well known to me ( follows in the office) with underlying history of CAD, HTN, hypercholesterolemia and hypothyroidism who presents with abdominal pain which began night before yesterday. She has been constipated so she gave herself an enema. She came in to hospital as her symptoms did not fully improve. She had nausea and vomiting as well. She has history of SBO in 2013. She denies chest pain, SOB or palpitations. She denies paroxysmal nocturnal dyspnea or orthopnea. She denies fever or chills. She denies headache or lightheadedness. She feels a little better today. ER course was notable for: - History Source History Provided By: Patient, Medical Record Limitations to Obtaining History: No Limitations - Past Medical History Cardio/Vascular: Yes: CAD, HTN, Hyperlipdemia Gastrointestinal: Yes: Other (adhesions, bowel resection) - Past Surgical History Past Surgical History: Yes: Hysterectomy (ex lap for necritizing enterocolitis during nursing school in [facility]) - Alcohol/Substance Use Hx Alcohol Use: No - Smoking History Smoking history: Never smoked Have you smoked in the past 12 months: No Aproximately how many cigarettes per day: 0 Home Medications - Allergies Allergies/Adverse Reactions: Allergies Allergy/AdvReac Type Severity Reaction Status Date / Time No Known Allergies Allergy Verified 04/01/18 00:46 - Home Medications Home Medications: Ambulatory Orders Clopidogrel Bisulfate [Plavix -] 75 mg PO DAILY 08/03/15 Ranolazine [Ranexa] 1,000 mg PO BID 08/03/15 Amlodipine Besylate [Norvasc -] 10 mg PO DAILY tablet 05/11/16 Atorvastatin Ca [Lipitor] 40 mg PO HS tablet 05/11/16 Ezetimibe [Zetia -] 10 mg PO DAILY tablet 05/11/16 Clopidogrel Bisulfate [Plavix] 75 mg PO DAILY 04/01/18 Levothyroxine [Synthroid -] 75 mcg PO DAILY 04/01/18 Losartan Potassium 25 mg PO DAILY 04/01/18 Nitroglycerin 0.4 mg SL PRN PRN 04/01/18 Family Disease History - Family Disease History Family Disease History: Diabetes: Mother (HTN, stroke), Other: Father (HTN, Parkinsons) Review of Systems - Review of Systems Constitutional: denies: Chills, Fever Cardiovascular: denies: Chest Pain, Palpitations, Shortness of Breath Respiratory: denies: Cough, Hemoptysis, Orthopnea, PND, SOB, SOB on Exertion Gastrointestinal: reports: Abdominal Pain, Constipation, Nausea, Vomiting. denies: Diarrhea, Melena, Rectal Bleeding Genitourinary: denies: Dysuria, Hematuria Musculoskeletal: denies: Back Pain, Joint Pain Neurological: denies: Dizziness, Headache, Seizure, Syncope Vital Signs: Vital Signs Temperature 98.5 F 04/02/18 05:32 Pulse Rate 69 04/02/18 05:32 Respiratory Rate 19 04/02/18 05:32 Blood Pressure 133/60 04/02/18 05:32 O2 Sat by Pulse Oximetry (%) 99 04/01/18 21:00 HENT: Yes: Atraumatic Neck: Yes: Supple Respiratory: Yes: CTA Bilaterally Gastrointestinal: Yes: Tenderness (miid epigastrium, no rebound) Cardiovascular: Yes: Regular Rate and Rhythm JVD: No Carotid Bruit: No PMI: Non-Displaced Heart Sounds: Yes: S1, S2 Murmur: No: Systolic Murmur Edema: No - Other Data Labs, Other Data: CBC, BMP 04/02/18 06:30 04/02/18 06:30 INR, PTT INR 1.15 (0.83-1.09) H 04/01/18 07:48 Laboratory Results - last 24 hr 04/02/18 04/02/18 06:30 06:30 WBC 7.0 RBC 4.63 Hgb 14.1 Hct 42.1 MCV 90.9 MCH 30.4 MCHC 33.4 RDW 13.1 Plt Count 140 MPV 9.5 Sodium 140 Potassium 3.9 Chloride 104 Carbon Dioxide 26 Anion Gap 9 BUN 10 Creatinine 0.7 Creat Clearance w eGFR > 60 Random Glucose 102 Calcium 8.1 L Phosphorus 3.6 Magnesium 2.1 NSR with normal ECG Imaging - Results Chest X-ray: Report Reviewed (Suggestion of LLL infiltrate) Cat Scan: Report Reviewed (Abdominal CT - ileus) EKG: Report Reviewed Problem List - Problems (1) HTN (hypertension) Code(s): I10 - ESSENTIAL (PRIMARY) HYPERTENSION Qualifiers: Hypertension type: essential hypertension Qualified Code(s): I10 - Essential (primary) hypertension (2) Abdominal pain Code(s): R10.9 - UNSPECIFIED ABDOMINAL PAIN Qualifiers: Abdominal location: periumbilical Qualified Code(s): R10.33 - Periumbilical pain (3) Coronary artery disease Code(s): I25.10 - ATHSCL HEART DISEASE OF COUNCIL CORONARY ARTERY W/O ANG PCTRS Qualifiers: Coronary Disease-Associated Artery/Lesion type: [place] artery [place] vs. transplanted heart: [place] heart Associated angina: with stable angina Qualified Code(s): I25.119 - Atherosclerotic heart disease of [place] coronary artery with unspecified angina pectoris (4) Hyperlipidemia Code(s): E78.5 - HYPERLIPIDEMIA, UNSPECIFIED Qualifiers: Hyperlipidemia type: pure hypercholesterolemia (5) Hypothyroidism Code(s): E03.9 - HYPOTHYROIDISM, UNSPECIFIED Qualifiers: Hypothyroidism type: unspecified Qualified Code(s): E03.9 - Hypothyroidism , unspecified Assessment/Plan 1. Ileus resolving (history of SBO) 2. CAD, angina pectoris 3. HTN 4. Hypercholesterolemia 5. Hypothyroidism PLAN: 1. GI and Surgical input to follow 2. Continue cardiac medications when she is able to take PO 3. IV fluids 4. No need for further cardiac intervention or therapy at this time David Coffey MD
--- NOTE | 2018-04-02 13:09 | PN ---
Physical Exam: SUBJECTIVE: Patient seen and examined. Pt. vomited x 2 overnight, bilious, non- bloody. NGT at this time was not on suction and Pt. vomited once after with NGT on suction. Pt. endorsed intermitten nausea overnight but no nausea at this time. Pt. is not passing gas or stool but is passing urine without complication. NG Tube was removed. OBJECTIVE: Vital Signs Period Temp Pulse Resp BP Sys/[place] Pulse Ox Last 24 Hr 97.4 F-98.6 F 58-81 17-20 132-158/60-75 99-99 GENERAL: The patient is awake, alert, and fully oriented, in acute distress from abdominal pain. HEAD: Normal with no signs of trauma. EYES: sclera anicteric, conjunctiva clear. No ptosis. ENT: Ears normal, nares patent, oropharynx clear without exudates, dry mucous membranes. LUNGS: Breath sounds equal, clear to auscultation bilaterally, no wheezes, no crackles, no accessory muscle use. HEART: Regular rate and rhythm, S1, S2 without murmur ABDOMEN: Soft, obese, surgical scars, diffuse tenderness to palpation most intense in epigastrium, nondistended, normoactive bowel sounds, no guarding, no rebound EXTREMITIES: 2+ dorsal pedal pulses, warm, well-perfused, no calf tenderness, no edema. NEUROLOGICAL: Normal speech, gait not observed. PSYCH: Normal mood, normal affect. SKIN: Warm, dry, normal turgor, psoriatic rash around umbilicus, ~2cm nodule left abdomen Laboratory Results - last 24 hr 04/02/18 04/02/18 06:30 06:30 WBC 7.0 RBC 4.63 Hgb 14.1 Hct 42.1 MCV 90.9 MCH 30.4 MCHC 33.4 RDW 13.1 Plt Count 140 MPV 9.5 Sodium 140 Potassium 3.9 Chloride 104 Carbon Dioxide 26 Anion Gap 9 BUN 10 Creatinine 0.7 Creat Clearance w eGFR > 60 Random Glucose 102 Calcium 8.1 L Phosphorus 3.6 Magnesium 2.1 Active Medications Current Medications Lactated Ringer's (Lactated Ringers Solution) 1,000 mls @ 110 mls/hr IV ASDIR YISSEL Last Admin: 04/02/18 01:10 Dose: 110 mls/hr Metoprolol Tartrate (Lopressor Injection -) 10 mg IVPUSH Q6H PRN PRN Reason: HYPERTENSION Morphine Sulfate (Morphine Sulfate) 4 mg IVPUSH Q6H PRN PRN Reason: PAIN LEVEL 7 - 10 Last Admin: 04/02/18 07:30 Dose: 4 mg Nitroglycerin (Nitrostat -) 0.4 mg SL PRN PRN PRN Reason: FOR CHEST PAIN Home Medications Medication Instructions Recorded Clopidogrel Bisulfate [Plavix -] 75 mg PO DAILY 08/03/15 Ranolazine [Ranexa] 1,000 mg PO BID 08/03/15 Amlodipine Besylate [Norvasc -] 10 mg PO DAILY tablet 05/11/16 Atorvastatin Ca [Lipitor] 40 mg PO HS tablet 05/11/16 Ezetimibe [Zetia -] 10 mg PO DAILY tablet 05/11/16 Clopidogrel Bisulfate [Plavix] 75 mg PO DAILY 04/01/18 Levothyroxine [Synthroid -] 75 mcg PO DAILY 04/01/18 Losartan Potassium 25 mg PO DAILY 04/01/18 Nitroglycerin 0.4 mg SL PRN PRN 04/01/18 ASSESSMENT/PLAN: Pt. is a 62 y.o. F w/ PMHx. of SBO, CAD x2 stents (2013), TIA, HTN, HLD, and hypothyroidism who presents for abdominal pain. #Gastroenterology -Abdominal Pain 2/2 suspected Ileus 2/[address] abd: segment of aneurysmal dilitation, must consider small bowel lymphoma Rpt. CT w/ oral contrast: dilatation on small bowel, contrast passed all the way through indicating pSBO, awaiting official read Dr. Holder for surgery recommends: advancing diet to low fiber liquids for 1 week then low fiber diet for 1 month. F/u CT scan in 1 month. KUB showed No acute process going on, no obstruction, retained contrast NG Tube removed Dr. Jonas for GI recommendations monitor examinations for obstruction and flatus LA: 1.5-->1.4 Holding home meds: plavix ect. Morphine 4mg Q6H PRN FOBT - -Elevated transaminitis R/o Liver disease likely 2/2 to dehydration in setting of bilious vomiting LFTs trending down, will continue to monitor -HLD Hold Lipitor 40mg as Pt. is NPO #Cardiology -CAD EKG: NSR, no ST or T-wave abnormalities s/p x 2 stents (2013) No known Hx. of [place] Per Pt. has had Hx. of TIA HOLD plavix for possible surgery; per surgeon unlikely at this time Consult ( Dr. Koenig/Erlinda) appreciated. -HTN Hold Norvasc and Losartan as BP has been low-normal #Endocrine -Hypothyroidism Hold Levothyroxine 75 mcg #F/E/N -LR @ 110ml/hr -monitor electrolytes and replete as needed -NPO #DVT. Ppx. -SCDs Visit type - Emergency Visit Emergency Visit: Yes ED Registration Date: 04/01/18 Care time: The patient presented to the Emergency Department on the above date and was hospitalized for further evaluation of their emergent condition. - New Patient This patient is new to me today: No - Critical Care Critical Care patient: No - Discharge Referral Referred to [facility] Med [facility] No
--- NOTE | 2018-04-02 14:00 | PN ---
Teaching Attending Note Name of Resident: Rex Savage ATTENDING PHYSICIAN STATEMENT I saw and evaluated the patient. I reviewed the resident's note and discussed the case with the resident. I agree with the resident's findings and plan as documented. SUBJECTIVE: no fever or chills . denies abd pain. feels more comfortable today . vomiting twice last night . OBJECTIVE: NAD , MM Cv: RRR. Lungs: CTAB ext : no edema Abd: soft, hyperactive BS. minimal tenderness in suprapubic are a ASSESSMENT AND PLAN: 62 y/o lady with h/o CAD (s/p PCIx2 2013), TIA, HTN, HLD, Obesity, Chronic constipation, psoriasis, SBO, partial bowel resection due to ischemia , who presented with abd pain, and N/V and was found to have SBO 1- SBO: - cont NG to suction - cont IVF - Morphine for pain - CT of A/P with po contrast images reviewed. report is pending . - Hold antiplatelet - pre-op risk stratification. if she requires abdominal sx/ exploration/bowel resection, this will be a intermediate risk procedure. the patient herself has h /o CAD but not having any active CP, or SOB and does not have any signs fo CHF, ACS, or arrhythmias. she has good functional status at home and her EKG does not show any acute ischemic changes. This patient will have an intermediate risk for brianda-op cardiac complications for this intermediate risk procedure. card indicated no need for further cardiac w/u QTc is 462 so will advise avoidance of anesthetic QTc prolongation agents. 2- HTN: if BP is elevated , will introduce her meds 3- Transaminitis : likely due to the abdominal process. trend in am HLOC
[2018-04-03] MEDS ORDERED: ACETAMINOPHEN 1000 MG/100 ML VIAL (NON FORMULARY) IVPB ONE (01:57)
[2018-04-03 07:53] LABS: HEMATOCRIT 45.1 % (32.4-45.2); HEMOGLOBIN 14.9 GM/dL (10.7-15.3); MCH 30.2 pg (25.7-33.7); MCHC 33.1 g/dl (32.0-36.0); MEAN CELL VOLUME 91.2 fl (80-96); MEAN PLT VOLUME 9.1 fl (7.5-11.1); PLATELET COUNT 141 K/MM3 (134-434); RBC 4.94 M/mm3 (3.60-5.2); RDW 13.1 % (11.6-15.6); WHITE BLOOD COUNT 4.5 K/mm3 (4.0-10.0)
[2018-04-03 08:14] LABS: ANION GAP 8 MMOL/L (8-16); BILIRUBIN,DIRECT 0.3 mg/dL (0.0-0.2); BILIRUBIN,TOTAL 1.2 mg/dL (0.2-1); BLOOD UREA NITROGEN 8 mg/dL (7-18); CALCIUM 8.6 mg/dL (8.5-10.1); CHLORIDE 104 mmol/L (98-107); CO2 29 mmol/L (21-32); CREATININE 0.8 mg/dL (0.55-1.3); GLUCOSE,RANDOM 78 mg/dL (74-106); MAGNESIUM 2.1 mg/dL (1.8-2.4); PHOSPHOROUS 3.3 mg/dL (2.5-4.9); POTASSIUM 3.8 mmol/L (3.5-5.1); SODIUM 141 mmol/L (136-145)
[2018-04-03 08:34] LABS: ALBUMIN 3.6 g/dl (3.4-5.0); BILIRUBIN,DIRECT 0.2 mg/dL (0.0-0.2); BILIRUBIN,TOTAL 1.1 mg/dL (0.2-1); TOT PROT 7.1 g/dl (6.4-8.2)
[2018-04-03] MEDS ORDERED: BACITRACIN 15 GM TUBE TOPICAL OINTMENT TP SCH (10:00)
[2018-04-03] MEDS: LACTATED RINGERS SOLUTION 1,000 ML IV SCH (10:57)
--- NOTE | 2018-04-03 12:30 | PN ---
Progress Note, Physician History of Present Illness: Abd pain, nausea and emesis resolved, NGT d/sean, starting clear liquid diet and reports gassiness and bloating, CT scan shows resolving pSBO. - Current Medication List Current Medications: Active Medications Amlodipine Besylate (Norvasc -) 10 mg PO DAILY [facility] Atorvastatin Calcium (Lipitor -) 40 mg PO HS [facility] Bacitracin (Bacitracin -) 1 applic TP DAILY [facility] Last Admin: 04/03/18 10:56 Dose: 1 applic Clopidogrel Bisulfate (Plavix -) 75 mg PO DAILY [facility] Ezetimibe (Zetia -) 10 mg PO DAILY [facility] Lactated Ringer's (Lactated Ringers Solution) 1,000 mls @ 110 mls/hr IV ASDIR [facility] Last Admin: 04/03/18 10:57 Dose: 110 mls/hr Levothyroxine Sodium (Synthroid -) 75 mcg PO DAILY [facility] Losartan Potassium (Cozaar -) 25 mg PO DAILY [facility] Metoprolol Tartrate (Lopressor Injection -) 10 mg IVPUSH Q6H PRN PRN Reason: HYPERTENSION Morphine Sulfate (Morphine Sulfate) 4 mg IVPUSH Q6H PRN PRN Reason: PAIN LEVEL 7 - 10 Last Admin: 04/02/18 07:30 Dose: 4 mg Nitroglycerin (Nitrostat -) 0.4 mg SL PRN PRN PRN Reason: FOR CHEST PAIN Ranolazine (Ranexa -) 1,000 mg PO BID [facility] - Objective Vital Signs: Vital Signs Temperature 98.3 F 04/03/18 06:00 Pulse Rate 66 04/03/18 10:00 Respiratory Rate 20 04/03/18 10:00 Blood Pressure 120/70 04/03/18 10:00 O2 Sat by Pulse Oximetry (%) 96 04/02/18 21:00 Constitutional: Yes: No Distress, Calm Neck: Yes: Supple Cardiovascular: Yes: Regular Rate and Rhythm Respiratory: Yes: Regular, CTA Bilaterally Gastrointestinal: Yes: Soft, Hypoactive Bowel Sounds Edema: No Labs: CBC, BMP 04/03/18 07:00 04/03/18 07:00 INR, PTT INR 1.15 (0.83-1.09) H 04/01/18 07:48 - ....Imaging Cat Scan: Report Reviewed (Improving pSBO) Problem List - Problems (1) HTN (hypertension) Code(s): I10 - ESSENTIAL (PRIMARY) HYPERTENSION Qualifiers: Hypertension type: essential hypertension Qualified Code(s): I10 - Essential (primary) hypertension (2) Small bowel obstruction Code(s): K56.69 - OTHER INTESTINAL OBSTRUCTION * DO NOT USE * (3) Coronary artery disease Code(s): I25.10 - ATHSCL HEART DISEASE OF [place] CORONARY ARTERY W/O ANG PCTRS Qualifiers: Coronary Disease-Associated Artery/Lesion type: [place] artery [place] vs. transplanted heart: [place] heart Associated angina: with stable angina Qualified Code(s): I25.118 - Atherosclerotic heart disease of [place] coronary artery with other forms of angina pectoris (4) Hyperlipidemia Code(s): E78.5 - HYPERLIPIDEMIA, UNSPECIFIED Qualifiers: Hyperlipidemia type: pure hypercholesterolemia Qualified Code(s): E78.00 - Pure hypercholesterolemia, unspecified; E78.0 - Pure hypercholesterolemia (5) Hypothyroidism Code(s): E03.9 - HYPOTHYROIDISM, UNSPECIFIED Qualifiers: Hypothyroidism type: unspecified Qualified Code(s): E03.9 - Hypothyroidism , unspecified (6) S/P coronary artery stent placement Code(s): Z95.5 - PRESENCE OF CORONARY ANGIOPLASTY IMPLANT AND GRAFT Assessment/Plan 1. pSBO resolving 2. CAD s/p PCI, angina pectoris 3. HTN 4. Hypercholesterolemia 5. Hypothyroidism PLAN: 1. GI and Surgical input appreciated, advance diet as tolerated 2. Continue Norvasc 10 qd, Lipitor 40 qd, Plavix 75 qd, Zetia 10 qd, losartan 25 qd, ranexa 1000 bid 3. No need for further cardiac intervention or therapy at this time
[2018-04-03] MEDS ORDERED: CLOPIDOGREL BISULFATE 75 MG TABLET (FP) PO SCH (12:45)
[2018-04-03] MEDS ORDERED: amLODIPine BESYLATE 10 MG TABLET (FP) PO SCH (12:45)
[2018-04-03] MEDS ORDERED: ACETAMINOPHEN 325 MG TABLET (FP) PO PRN (13:06)
--- NOTE | 2018-04-03 13:58 | PN ---
Teaching Attending Note Name of Resident: Rex Savage ATTENDING PHYSICIAN STATEMENT I saw and evaluated the patient. I reviewed the resident's note and discussed the case with the resident. I agree with the resident's findings and plan as documented. SUBJECTIVE: no fever or chills . minimal abd bloating. no N/V , she passed gas and had BM OBJECTIVE: NAD , MM Cv: RRR. Lungs: CTAB Ext : no edema Abd: soft,NL BS . minimal discomfort in epigastric area. ASSESSMENT AND PLAN: 62 y/o lady with h/o CAD (s/p PCIx2 2013), TIA, HTN, HLD, Obesity, Chronic constipation, psoriasis, SBO, partial bowel resection due to ischemia , who presented with abd pain, and N/V and was found to have SBO 1- Partial SBO: - improved - liquid diet x 1 wek , then low fiber diet x 1 month - CT of abd in 1 month - Gi and sx f/u - No surgical intervention 2- HTN: resume meds 3- Transaminitis : likely due to the abdominal process. improved dc if tolerates her diet today
[2018-04-03 14:13] VITALS: BP 156/88; PULSE 68; TEMP 98
--- NOTE | 2018-04-03 17:03 | PN ---
Physical Exam: SUBJECTIVE: Pt. admitted for abdominal pain 2/2 to [facility] [place] scan showed segment of aneurysmal dilatation. Per GI and surgery consults we placed an NGT for decompression, gave IV zofran and made the Pt. NPO. Pt. had relief of symptoms. KUB showed no acute process going on and no obstruction. EKG was benign showing NSR no ST or T-wave changes. Plavix was help in anticipation of possible procedure because stent placement was over 2 years ago as per Cardiology consult recommndations. Pt.s PO medications were held during status of NPO. Pt. passed gas and stool and home medications were resumed. Pt. advised to adjust diet as detailed below and encouraged for [address] A/P/ Hospital course discussed agreed upon with Pt. and medical staff. OBJECTIVE: Vital Signs Period Temp Pulse Resp BP Sys/Prince Pulse Ox Last 24 Hr 98 F-99.6 F 59-73 20-20 120-156/62-88 96 GENERAL: The patient is awake, alert, and fully oriented, in no acute distress. HEAD: Normal with no signs of trauma. EYES: PERRL, extraocular movements intact, sclera anicteric, conjunctiva clear. No ptosis. ENT: Ears normal, nares patent, oropharynx clear without exudates, moist mucous membranes. NECK: Trachea midline, full range of motion, supple. LUNGS: Breath sounds equal, clear to auscultation bilaterally, no wheezes, no crackles, no accessory muscle use. HEART: Regular rate and rhythm, S1, S2 without murmur, rub or gallop. ABDOMEN: Soft, nontender, nondistended, normoactive bowel sounds, no guarding, no rebound, no hepatosplenomegaly, no masses. EXTREMITIES: 2+ pulses, warm, well-perfused, no edema. NEUROLOGICAL: Cranial nerves II through XII grossly intact. Normal speech, gait not observed. PSYCH: Normal mood, normal affect. SKIN: Warm, dry, normal turgor, no rashes or lesions noted Laboratory Results - last 24 hr 04/03/18 04/03/18 04/03/18 07:00 07:00 07:00 WBC 4.5 RBC 4.94 Hgb 14.9 Hct 45.1 MCV 91.2 MCH 30.2 MCHC 33.1 RDW 13.1 Plt Count 141 MPV 9.1 Sodium 141 Potassium 3.8 Chloride 104 Carbon Dioxide 29 Anion Gap 8 BUN 8 Creatinine 0.8 Creat Clearance w eGFR > 60 Random Glucose 78 Calcium 8.6 Phosphorus 3.3 Magnesium 2.1 Total Bilirubin 1.2 H 1.1 H Direct Bilirubin 0.3 H 0.2 AST 41 H ALT 66 H Alkaline Phosphatase 81 Total Protein 7.1 Albumin 3.6 Active Medications Generic Name Dose Route Start Last Admin Trade Name Freq PRN Reason Stop Dose Admin Acetaminophen 325 mg 04/03/18 13:06 Tylenol - PO Q6H PRN PAIN Amlodipine Besylate 10 mg 04/03/18 12:45 04/03/18 12:31 Norvasc - PO 10 mg DAILY [facility] Administration Atorvastatin Calcium 40 mg 04/03/18 22:00 Lipitor - PO [facility] Bacitracin 1 applic 04/03/18 10:00 04/03/18 10:56 Bacitracin - TP 1 applic DAILY [facility] Administration Clopidogrel Bisulfate 75 mg 04/03/18 12:45 04/03/18 12:31 Plavix - PO 75 mg DAILY [facility] Administration Ezetimibe 10 mg 04/04/18 10:00 Zetia - PO DAILY [facility] Lactated Ringer's 1,000 mls @ 110 mls/hr 04/01/18 06:45 04/03/18 10:57 Lactated Ringers Solution IV 110 mls/hr ASDIR [facility] Administration Levothyroxine Sodium 75 mcg 04/04/18 10:00 Synthroid - PO DAILY [facility] Losartan Potassium 25 mg 04/04/18 10:00 Cozaar - PO DAILY [facility] Metoprolol Tartrate 10 mg 04/01/18 07:04 Lopressor Injection - IVPUSH Q6H PRN HYPERTENSION Morphine Sulfate 4 mg 04/01/18 07:47 04/02/18 07:30 Morphine Sulfate IVPUSH 4 mg Q6H PRN Administration PAIN LEVEL 7 - 10 Nitroglycerin 0.4 mg 04/01/18 10:28 Nitrostat - SL PRN PRN FOR CHEST PAIN Ranolazine 1,000 mg 04/03/18 22:00 Ranexa - PO BID [facility] ASSESSMENT/PLAN:
--- NOTE | 2018-04-03 17:49 | DS ---
Physical Exam: SUBJECTIVE: Patient seen and examined. Endorses feeling better. Pt. endorses passing gas and small amounts of stool, loose but with some form to it. Pt. states that she scratched her stomach around the area of the nodule. Pt. asking for a doctor's note to go back to work. OBJECTIVE: Vital Signs Period Temp Pulse Resp BP Sys/Prince Pulse Ox Last 24 Hr 98 F-99.6 F 59-73 20-20 120-156/62-88 96 PHYSICAL EXAM GENERAL: The patient is awake, alert, and fully oriented, in no acute distress. EYES: Sclera anicteric, conjunctiva clear. ENT: Ears normal, nares patent, oropharynx clear without exudates, Dry mucous membranes. LUNGS: Breath sounds equal, clear to auscultation bilaterally, no wheezes, no crackles, no accessory muscle use. HEART: Regular rate and rhythm, S1, S2 without murmur ABDOMEN: Soft, nontender, nondistended, normoactive bowel sounds, no guarding, no rebound, RLQ lesion that is more erythematous and larger EXTREMITIES: 2+ dorsal pedal pulses, nocalf tenderness, warm, well-perfused, no edema. NEUROLOGICAL:Normal speech, gait not observed. PSYCH: Normal mood, normal affect. SKIN: Warm, dry, normal turgor, no rashes or lesions noted. LABS Laboratory Results - last 24 hr 04/03/18 04/03/18 04/03/18 07:00 07:00 07:00 WBC 4.5 RBC 4.94 Hgb 14.9 Hct 45.1 MCV 91.2 MCH 30.2 MCHC 33.1 RDW 13.1 Plt Count 141 MPV 9.1 Sodium 141 Potassium 3.8 Chloride 104 Carbon Dioxide 29 Anion Gap 8 BUN 8 Creatinine 0.8 Creat Clearance w eGFR > 60 Random Glucose 78 Calcium 8.6 Phosphorus 3.3 Magnesium 2.1 Total Bilirubin 1.2 H 1.1 H Direct Bilirubin 0.3 H 0.2 AST 41 H ALT 66 H Alkaline Phosphatase 81 Total Protein 7.1 Albumin 3.6 HOSPITAL COURSE: Date of Admission:04/01/18 Date of Discharge: 04/03/18 Pt. admitted for abdominal pain 2/2 to [facility] [place]. CT scan showed segment of aneurysmal dilatation. Per GI and surgery consults we placed an NGT for decompression, gave IV zofran and made the Pt. NPO. Pt. had relief of symptoms. KUB showed no acute process going on and no obstruction. EKG was benign showing NSR no ST or T-wave changes. Plavix was help in anticipation of possible procedure because stent placement was over 2 years ago as per Cardiology consult recommndations. Pt.s PO medications were held during status of NPO. Pt. passed gas and stool and home medications were resumed. Pt. advised to adjust diet as detailed below and encouraged for [address] A/P/ Hospital course discussed agreed upon with Pt. and medical staff. Minutes to complete discharge: 32 Discharge Summary Reason For Visit: ABDOMINAL PAIN Current Active Problems Abdominal pain (Acute) HTN (hypertension) (Acute) Nausea & vomiting (Acute) Small bowel obstruction (Acute) Coronary artery disease (Chronic) Hyperlipidemia (Chronic) Hypothyroidism (Chronic) S/P coronary artery stent placement (Chronic) Condition: Improved - Instructions Diet, Activity, Other Instructions: You were admitted for abdominal pain. You had a partial bowel obstruction. We have changed your diet while in the hospital Please take low fiber liquids for 1 week (04/03/18-04/10/18) Then please take a low fiber diet (04/10/18-05/10/18) Please follow up with CT Abdomen and Pelvis in 1 month . Please follow up with your Primary Care Physician within 1 week Please follow up with your Medical Office Scheduler within 1 month to review [address] Abdomen and Pelvis results. you might need further work up if no resolution of bowel thickening Low fiber liquids for 1 week then Low fat Diet for 1 month. Please return to the ED if you are having worsening abdominal pain, inability to pass stool for more than 3 days, if you have worsening vomiting that will not go away, or if you develop fever and chills. Referrals: Sandy Beck MD [Primary Care Provider] - 1 Week Eugene Jonas MD [Staff Physician] - 1 Week Wagner Holder MD [Staff Physician] - 2 Weeks Disposition: HOME - Home Medications Comprehensive Discharge Medication List: Ambulatory Orders Ranolazine [Ranexa] 1,000 mg PO BID 08/03/15 Amlodipine Besylate [Norvasc -] 10 mg PO DAILY tablet 05/11/16 Atorvastatin Ca [Lipitor] 40 mg PO HS tablet 12/24/16 Ezetimibe [Zetia -] 10 mg PO DAILY tablet 05/11/16 Clopidogrel Bisulfate [Plavix] 75 mg PO DAILY 04/01/18 Levothyroxine [Synthroid -] 75 mcg PO DAILY 04/01/18 Losartan Potassium 25 mg PO DAILY 04/01/18 Nitroglycerin 0.4 mg SL PRN PRN 04/01/18 This patient is new to me today: No Emergency Visit: Yes ED Registration Date: 04/01/18 Care time: The patient presented to the Emergency Department on the above date and was hospitalized for further evaluation of their emergent condition. Critical Care patient: No - Discharge Referral Referred to [facility] No
[2018-04-03] MEDS ORDERED: RANOLAZINE E.R. 500 MG TABLET (FP) PO SCH (22:00)
[2018-04-03] MEDS ORDERED: ATORVASTATIN CA 40 MG TABLET (FP) PO SCH (22:00)
[2018-04-04] MEDS ORDERED: EZETIMIBE 10 MG TABLET (FP) PO SCH (10:00)
[2018-04-04] MEDS ORDERED: LOSARTAN POTASSIUM 25 MG TABLET PO SCH (10:00)
[2018-04-04] MEDS ORDERED: LEVOTHYROXINE NA 75 MCG TABLET (FP) PO SCH (10:00)
== END 2018-04-03 20:17 | disposition home or self-care (01) | DRG 389 ==
LOC: JER 23:57 → JERBED 04-01 05:37 → OBSVTOIN 04-01 06:32 → J6S 04-01 17:10
PROVIDERS: ADMIT Internal Medicine; ATTEND Internal Medicine
PROC: 0D9670Z Drainage of Stomach with Drainage Device, Via Natural or Artificial Opening (ICD-10-PCS; principal; 2018-04-01)
DX: K56.7 Ileus, unspecified (principal); I25.110 Atherosclerotic heart disease of native coronary artery with unstable angina pectoris; K56.50 Intestinal adhesions [bands], unspecified as to partial versus complete obstruction; E03.9 Hypothyroidism, unspecified; E66.9 Obesity, unspecified; Z68.33 Body mass index [BMI] 33.0-33.9, adult; K59.09 Other constipation; L40.9 Psoriasis, unspecified; E86.0 Dehydration; Z86.73 Personal history of transient ischemic attack (TIA), and cerebral infarction without residual deficits; Z95.5 Presence of coronary angioplasty implant and graft
CPT/HCPCS: 36415; 71045-TC-FY; 74019-TC-FY; 74176-TC; 74177-TC; 80048; 80053; 80076; 81003; 81015; 82247; 82248; 82550; 82553; 83605; 83690; 83735; 84100; 84484; 85025; 85027; 85610; 86850; 86900; 86901; 87081; 87086; 87186; 93005; 93010; 99284-25; G0378; J0131